=== PATIENT | female | born 1975 | race American Indian/Alaskan Native ===

== ENCOUNTER 2016-11-22 16:34 | Emergency (ER) | payer MEDICAID, OTHER ==
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
[2016-11-22 20:48] VITALS: BP 131/64
== END 2016-11-23 00:05 | disposition home or self-care (01) ==
LOC: ED 16:34
DX: S39.012A Strain of muscle, fascia and tendon of lower back, initial encounter (principal); S16.1XXA Strain of muscle, fascia and tendon at neck level, initial encounter; V49.9XXA Car occupant (driver) (passenger) injured in unspecified traffic accident, initial encounter; Y93.9 Activity, unspecified; Y99.9 Unspecified external cause status; Y92.410 Unspecified street and highway as the place of occurrence of the external cause
CPT/HCPCS: 99282

== ENCOUNTER 2019-08-11 16:43 | Emergency (ER) | payer SELFPAY ==
--- NOTE | 2019-08-11 16:53 | Event Note ---
ED Screening Note Date of service: 08/11/19 Time: 16:52 ED Screening Note: Pt c/o cotton being stuck in left ear x today and facial pain, pressure, burning, and swelling x yesterday This initial assessment/diagnostic orders/clinical plan/treatment(s) is/are subject to change based on patients health status, clinical progression and re- assessment by fellow clinical providers in the ED. Further treatment and workup at subsequent clinical providers discretion. Patient/guardian urged not to elope from the ED as their condition may be serious if not clinically assessed and managed. Initial orders include: ACC cotton removed
== END 2019-08-11 22:24 | disposition left against medical advice (07) ==
LOC: ED 16:43
DX: R51 Headache (principal); Z53.21 Procedure and treatment not carried out due to patient leaving prior to being seen by health care provider